=== PATIENT | female | born 1965 | race Caucasian/White ===

== ENCOUNTER 2019-01-30 16:36 | Observation (INO) | payer BC, OTHER ==
[2019-01-30] MEDS ORDERED: Metoprolol Tartrate 5 MG/5 ML SDV IVPUSH ONE (16:46)
[2019-01-30] MEDS ORDERED: Aspirin 81 MG Tab.Chew CHEW ONE (16:46)
[2019-01-30] MEDS ORDERED: Famotidine 20 MG/2 ML SDV IVPUSH ONE (16:46)
[2019-01-30] MEDS ORDERED: Ticagrelor 90 MG Tab PO ONE (16:46)
[2019-01-30] MEDS ORDERED: Sodium Chloride 0.9% 10 ML Syringe FLUSH PRN ×2 (16:46→20:37)
--- NOTE | 2019-01-30 16:46 | EDM.PDOC ---
ED HPI GENERAL MEDICAL PROBLEM - General Chief Complaint: Chest Pain Stated Complaint: CHEST PAIN Time Seen by Provider: 01/30/19 16:40 Source of Information: Reports: Patient, Old Records ([facility] EMR. No paper hospital chart available.), Other (Limited records from [facility]) History Limitations: Reports: No Limitations - History of Present Illness INITIAL COMMENTS - FREE TEXT/NARRATIVE: The patient drove herself to the emergency room via private automobile after brief evaluation by her regular provider, Ivelisse Funez PA-C, at [facility], secondary to sudden onset 4/10 retrosternal chest pressure associated with some dizziness, nausea, diaphoresis, and radiation to the interscapular regions bilaterally. She has not felt well for the last 5-6 days with a UTI recently diagnosed and patient currently under Bactrim DS therapy. She currently denies any gross hematuria, colic, or other UTI symptoms. The patient denies any heart flutter, orthostasis, orthopnea, paresthesias, recent decreased exercise tolerance, or any other anginal-type symptoms. No recent history of abdominal pain, heartburn, nausea, diarrhea, melena, gross hematochezia, or any food intolerance, including fatty foods, etc.. The patient also denies any recent fever, cough, wheezing, etc.. No history of recent headaches, visual changes, diplopia, change in mental status, or other change in neurological status. Onset: Today, Sudden Onset Date: 01/30/19 Onset Time: 14:00 Duration: Constant Location: Reports: Chest, Back, Radiates to (As above). Denies: Head, Face, Neck, Abdomen, Upper Extremity, Left, Upper Extremity, Right Quality: Reports: Pressure Severity: Mild Improves with: Reports: None Worsens with: Reports: None Context: Reports: Other (As above). Denies: Sick Contact, Trauma Associated Symptoms: Reports: Nausea/Vomiting (No emesis), Shortness of Breath. Denies: Confusion, Chest Pain, Cough, Diaphoresis, Fever/Chills, Headaches, Loss of Appetite, Malaise, Seizure, Syncope, Weakness Treatments INSTITUTIONAL COOK: Reports: Other (see below) (None) Chest Pain 4/10 Pain Score (Numeric/FACES): 4 - Related Data Allergies Allergy/AdvReac Type Severity Reaction Status Date / Time No Known Allergies Allergy Verified 07/13/18 22:55 Home Meds: Home Meds Levothyroxine Sodium 88 mcg PO SUTUTHSA@1030 07/13/18 [History] Levothyroxine [Synthroid] 100 mcg MOWEFR@1030 07/13/18 [History] Sulfamethoxazole/Trimethoprim [Bactrim Ds Tablet] 1 tab PO BID 01/30/19 [History ] Past Medical History HEENT History: Reports: Cataract, Impaired Vision, Other (See Below). Denies: Allergic Rhinitis, Glaucoma, Hard of Hearing, Macular Degeneration, Otitis Media , Retinal Detachment Other HEENT History: Right lower quadrant chronic vision loss beginning in 2013 with negative MRI of the brain as below. Patient does wear glasses. Cardiovascular History: Reports: None. Denies: Afib, Aneurysm, Arrhythmia, Blood Clots/VTE/DVT, CAD, Cardiomyopathy, Heart Failure, Heart Murmur, High Cholesterol, Hypertension, AR, PVD, Syncope Respiratory History: Reports: None. Denies: Asthma, Bronchitis, Recurrent, COPD , Intubation, Difficult, Intubation, Previous, PE, Pneumonia, Recurrent, Pneumothorax, Sleep Apnea Gastrointestinal History: Reports: Cholelithiasis, Other (See Below). Denies: Celiac Disease, Chronic Constipation, Chronic Diarrhea, Colon Polyp, Fecal Incontinence, Gastritis, GERD, GI Bleed, Hemorrhoids, Hepatitis, Hiatal Hernia, Irritable Bowel Syndrome, Jaundice, Pancreatitis, PUD Other Gastrointestinal History: Nonsymptomatic cholelithiasis Genitourinary History: Reports: None. Denies: Acute Renal Failure, Chronic Renal Insuffiency, Renal Calculus, STD, Urinary Incontinence, UTI, Recurrent GEMOLOGIST History: Reports: : 4 Para: 4 LMP (Approximate): Other (See Below) Other GEMOLOGIST History: Menopause in her late 40s. Full term without complications during pregnancies or deliveries Musculoskeletal History: Reports: Osteoarthritis. Denies: Amputation, Arthritis , Back Pain, Chronic, Fracture, Gout, Neck Pain, Chronic, RA, SLE Neurological History: Reports: None. Denies: Cerebral Aneurysms, Concussion, CVA, Headaches, Chronic, Head Trauma, Migraines, MS, Neuropathy, Peripheral, Parkinson's, Seizure, TIA, Vertigo Psychiatric History: Reports: None. Denies: Abuse, Victim of, ADD, ADHD, Addiction, Anxiety, Depression, Psych Hospitalization(s), PTSD, Suicide Attempt , Suicidal Ideation Endocrine/Metabolic History: Reports: Hypothyroidism, Obesity/BMI 30+. Denies: Diabetes, Gestational, Diabetes, Type I, Diabetes, Type II, Diabetes Mellitus, Type 3c, IDDM Hematologic History: Reports: None. Denies: Anemia, Blood Transfusion(s), Iron Deficiency Immunologic History: Reports: None. Denies: AIDS, HIV, SLE Oncologic (Cancer) History: Reports: None. Denies: Basal Cell Carcinoma, Breast , Cervix, Colon, Hodgkin's Lymphoma, Leukemia, Lymphoma, Malignant Melanoma, Non -Hodgkin's Lymphoma, Ovarian, Squamous Cell Carcinoma, Thyroid, Uterine Dermatologic History: Reports: None. Denies: Eczema, Psoriasis - Infectious Disease History Infectious Disease History: Reports: Chicken Pox. Denies: C-Difficile, Measles , Meningitis, Mononucleosis, MRSA, Mumps, Pertussis (Whooping Cough), Rheumatic Fever, Rubella, Scarlet Fever, Shingles, TB, VRE - Past Surgical History Head Surgeries/Procedures: Reports: None HEENT Surgical History: Reports: Oral Surgery, Other (See Below) Other HEENT Surgeries/Procedures: [place] teeth extraction 4 at age 19. GI Surgical History: Reports: None Female Surgical History: Reports: Tubal Ligation, Other (See Below) Other Female Surgeries/Procedures: Bilateral tubal ligation in 1996. - Past Imaging History Past Imaging History: Reports: CAT Scan (CT of the abdomen and pelvis on 09/13/16. ), Mammogram (Mammogram in 2017.), MRI (MRI of the brain on 11/01/13.) Social & Family History - Family History HEENT: Reports: Retinal Detachment, Other (See Below). Denies: Glaucoma, Macular Degeneration Other HEENT Family History: Mother with history of retinal detachment. Cardiac: Reports: None. Denies: Afib, Aneurysm, Arrhythmia, Blood Clots/VTE/DVT , CAD, Heart Failure, Heart Murmur, High Cholesterol, Hypertension, AR, Pacemaker, PVD/COD, Syncope Respiratory: Reports: None. Denies: Asthma, COPD, PE, Pneumothorax, Sleep Apnea GI: Reports: None. Denies: Celiac Disease, Cholelithiasis, Chronic Constipation , Colon Polyps, Diverticulitis, GERD, GI bleed, Hepatitis, Inflammatory Bowel Disease, Irritable Bowel Syndrome, PUD : Reports: None. Denies: Renal Calculus, Renal Disease/Insufficiency OBGYN: Reports: None. Denies: Endometriosis, Recurrent Spontaneous Musculoskeletal: Reports: None. Denies: Arthritis, Gout, Osteoarthritis, RA, SLE Neurological: Reports: None. Denies: Alzheimers Disease, Cerebral Aneurysms, CVA, Dementia, Migraines, MS, Neuropathy, Peripheral, Parkinson's, Seizure, TIA , Vertigo Psychiatric: Reports: None. Denies: Abuse, Victim of, ADD, ADHD, Anxiety, Depression, Hallucinations, PTSD, Suicide Attempt Endocrine/Metabolic: Reports: None. Denies: Diabetes, Gestational, Diabetes, Type I, Diabetes, type II, Diabetes Mellitus, Type 3c, Hypothyroidism, IDDM Hematologic: Reports: None. Denies: SLE Immunologic: Reports: None. Denies: AIDS, HIV, SLE Dermatologic: Reports: None. Denies: Eczema, Psoriasis Oncologic: Reports: None. Denies: Breast, Cervix, Colon, Hodgkin's Lymphoma, Leukemia, Lymphoma, Non-Hodgkin's Lymphoma, Ovarian, Uterine - Tobacco Use Smoking Status *Q: Former Smoker Tobacco Use Within Last Twelve Months: No Years of Tobacco use: 0 Packs/Tins Daily Comment: Only a couple of cigarettes 2 times per year with no use since 2018. Used Tobacco, but Quit: Yes Smoking Cessation Information Provided To Patient: No Second Hand Smoke Exposure: No Second Hand Smoke Education Provided: No - Caffeine Use Caffeine Use: Reports: Tea (2 glasses per month). Denies: Coffee, Energy Drinks , Soda - Alcohol Use Alcohol Use History: Yes Days Per Week of Alcohol Use: 0 Number of Drinks Per Day: 1 Number of Drinks Per Day Comment: Usually mixed drinks once per month. No previous DWIs, problems with alcohol abuse, etc. Total Drinks Per Week: 0 Alcohol Use in Last Twelve Months: Yes Alcohol Use Frequency: Monthly - Recreational Drug Use Recreational Drug Use: No Drug Use in Last 12 Months: No Recreational Drug Type: Denies: Amphetamines (Speed), Heroin, Inhalants (Glues, Solvents, Aerosols), LSD (Acid), Marijuana/Hashish, Methamphetamine, Morphine, Oxycodone - Sexual History Sexual History: Reports: Single Partner - Living Situation & Occupation Living situation: Reports: , (3 children from her second which did end in divorce initially with patient subsequently remarrying this individual. Note the patient to divorce her first with one child from that marriage.), with Family () Occupation: Employed ([employer]) ED ROS GENERAL - Review of Systems Review Of Systems: ROS reveals no pertinent complaints other than HPI. ED EXAM, GENERAL - Physical Exam Exam: See Below Exam Limited By: No Limitations General Appearance: Alert, WD/WN, No Apparent Distress Eye Exam: Bilateral Eye: EOMI, Normal Inspection (No nystagmus. Patient wearing glasses.), PERRL Nose: Normal Inspection, Normal Mucosa, No Blood Throat/Mouth: Normal Inspection, Normal Lips, Normal Teeth, Normal Gums, Normal Oropharynx, Normal Voice, No Airway Compromise. No: Dysphagia, Perioral Cyanosis Head: Atraumatic, Normocephalic. No: Facial Swelling, Facial Tenderness, Sinus Tenderness Neck: Normal Inspection, Supple, Non-Tender, Full Range of Motion. No: Carotid Bruit, Lymphadenopathy (L), Lymphadenopathy (R), Thyromegaly Respiratory/Chest: No Respiratory Distress, Lungs Clear, Normal Breath Sounds, No Accessory Muscle Use, Chest Non-Tender. No: Pleural Rub, Retractions Cardiovascular: Normal Peripheral Pulses, Regular Rate, Rhythm, No Edema, No Gallop, No JVD, No Murmur, No Rub. No: Gallop/S3, Friction Rub Peripheral Pulses: 2+: Femoral (L), Femoral (R), Dorsalis Pedis (L), Dorsalis Pedis (R) GI/Abdominal: Normal Bowel Sounds, Soft, Non-Tender, No Organomegaly, No Distention, No Abnormal Bruit, No Mass, Other (Obese). No: Guarding (Female) Exam: Deferred Rectal (Female) Exam: Deferred Back Exam: Normal Inspection, Full Range of Motion. No: CVA Tenderness (L), CVA Tenderness (R), Muscle Spasm Extremities: Normal Inspection, Normal Range of Motion, Non-Tender, No Pedal Edema, Normal Capillary Refill. No: Nicolle's Sign Neurological: Alert, Oriented, CN II-XII Intact, Normal Cognition, Normal Gait, Normal Reflexes (Negative Babinski's), No Motor/Sensory Deficits Psychiatric: Normal Affect, Normal Mood Skin Exam: Warm, Dry, Intact, Normal Color, No Rash. No: Diaphoretic, Ecchymosis, Petechiae, Wound/Incision Lymphatic: No Adenopathy EKG INTERPRETATION EKG Date: 01/30/19 Time: 16:49 Rhythm: NSR Rate (Beats/Min): 78 [place]: Normal (Neutral cardiac axis) P-Wave: Enlarged (Mild diffuse biphasic P waves) QRS: Normal (0.08 seconds) ST-T: Other (T-wave inversion in leads V1 and V2) QT: Normal [place]/PQ Interval: 0.19 seconds Comparison: No Change (EKG at [facility] earlier today) EKG Interpretation Comments: 1. Possible anterior wall ischemia 2. Left atrial enlargement Course - Vital Signs Last Recorded V/S: Last Vital Signs Temp 36.8 C 01/30/19 17:18 Pulse 74 01/30/19 19:04 Resp 16 01/30/19 19:04 BP 123/81 01/30/19 19:04 Pulse Ox 97 01/30/19 19:04 - Orders/Labs/Meds Orders: Active Orders 24 hr Category Date Time Status Cardiac Monitoring [RC] . DIRECTED Care 01/30/19 16:46 Active EKG Documentation Completion [RC] ASDIRECTED Care 01/30/19 16:46 Active Oxygen Therapy, ED [RC] PRN Care 01/30/19 16:46 Active Peripheral IV Care [RC] . DIRECTED Care 01/30/19 16:46 Active Pulse Oximetry [RC] CONTINUOUS Care 01/30/19 16:46 Active Up With Assistance [RC] PFP Care 01/30/19 16:46 Active Vital Signs [RC] PFP Care 01/30/19 16:46 Active Nothing per Oral Now Diet [DIET] Diet 01/30/19 Breakfast Active Chest 1V Frontal [CR] Stat Exams 01/30/19 16:46 Taken Sodium Chloride 0.9% [Saline Flush] Med 01/30/19 16:46 Active 10 ml FLUSH ASDIRECTED PRN Obtain Past Medical Record [OM.PC] Urgent Oth 01/30/19 16:46 Active Peripheral IV Insertion Adult [OM.PC] Stat Oth 01/30/19 16:46 Ordered Resuscitation Status Stat Resus Stat 01/30/19 16:46 Ordered Medication Orders Sodium Chloride (Saline Flush) 10 ml FLUSH ASDIRECTED PRN PRN Reason: Keep Vein Open Last Admin: 01/30/19 17:42 Dose: 10 ml Labs: Laboratory Tests 01/30/19 01/30/19 01/30/19 Range/Units 17:18 17:18 17:18 WBC 6.7 (4.0-10.2) K/uL RBC 5.32 H (3.77-5.09) M/uL Hgb 15.2 (11.7-15.5) g/dL Hct 44.5 (34.0-46.0) % MCV 83.6 L (84.0-98.0) fL MCH 28.6 (28.2-33.3) pg MCHC 34.2 (31.7-36.0) g/dL RDW 14.1 (11.2-14.1) % Plt Count 197 (150-350) K/uL Neut % (Auto) 61.0 (45.0-80.0) % Lymph % (Auto) 28.7 (10.0-50.0) % [place] % (Auto) 6.4 (2.0-14.0) % Eos % (Auto) 3.0 (0.0-5.0) % Baso % (Auto) 0.9 (0.0-2.0) % Neut # (Auto) 4.11 (1.40-7.00) K/uL Lymph # (Auto) 1.93 (0.50-3.50) K/uL [place] # (Auto) 0.43 (0.00-1.00) K/uL Eos # (Auto) 0.20 (0.00-0.50) K/uL Baso # (Auto) 0.06 (0.00-0.20) K/uL PT 10.0 (9.5-12.0) SEC INR 0.9 APTT 30.2 (21.0-31.3) SEC D-Dimer, Quantitative < 100 (0-400) ng/mL Sodium (136-145) mmol/L Potassium (3.5-5.1) mmol/L Chloride (98-107) mmol/L Carbon Dioxide (21.0-32.0) mmol/L BUN (7-18) mg/dL Creatinine (0.51-1.17) mg/dL Est Cr Clr Drug Dosing Estimated GFR (MDRD) mL/min Glucose (74-106) mg/dL Lactic Acid (0.4-2.0) mmol/L Uric Acid (2.6-7.2) mg/dL Calcium (8.5-10.1) mg/dL Magnesium (1.8-2.4) mg/dL Total Bilirubin (0.2-1.0) mg/dL AST (15-37) U/L ALT (12-78) U/L Alkaline Phosphatase (46-116) IU/L Creatine Kinase (26-308) U/L Creatine Kinase Index (0.0-2.5) % CK-MB (CK-2) (0.00-3.60) ng/mL Troponin I (0.000-0.056) ng/mL NT-Pro-B Natriuret Pep (0-125) pg/mL Total Protein (6.4-8.2) g/dL Albumin (3.4-5.0) g/dL TSH, Ultra Sensitive (0.358-3.740) mIU/mL 01/30/19 01/30/19 Range/Units 17:18 17:18 WBC (4.0-10.2) K/uL RBC (3.77-5.09) M/uL Hgb (11.7-15.5) g/dL Hct (34.0-46.0) % MCV (84.0-98.0) fL MCH (28.2-33.3) pg MCHC (31.7-36.0) g/dL RDW (11.2-14.1) % Plt Count (150-350) K/uL Neut % (Auto) (45.0-80.0) % Lymph % (Auto) (10.0-50.0) % [place] % (Auto) (2.0-14.0) % Eos % (Auto) (0.0-5.0) % Baso % (Auto) (0.0-2.0) % Neut # (Auto) (1.40-7.00) K/uL Lymph # (Auto) (0.50-3.50) K/uL [place] # (Auto) (0.00-1.00) K/uL Eos # (Auto) (0.00-0.50) K/uL Baso # (Auto) (0.00-0.20) K/uL PT (9.5-12.0) SEC INR APTT (21.0-31.3) SEC D-Dimer, Quantitative (0-400) ng/mL Sodium 141 (136-145) mmol/L Potassium 4.2 (3.5-5.1) mmol/L Chloride 104 (98-107) mmol/L Carbon Dioxide 28.5 (21.0-32.0) mmol/L BUN 14 (7-18) mg/dL Creatinine 0.85 (0.51-1.17) mg/dL Est Cr Clr Drug Dosing TNP Estimated GFR (MDRD) > 60 mL/min Glucose 99 (74-106) mg/dL Lactic Acid 0.5 (0.4-2.0) mmol/L Uric Acid 4.8 (2.6-7.2) mg/dL Calcium 9.2 (8.5-10.1) mg/dL Magnesium 1.9 (1.8-2.4) mg/dL Total Bilirubin 0.5 (0.2-1.0) mg/dL AST 32 (15-37) U/L ALT 51 (12-78) U/L Alkaline Phosphatase 101 (46-116) IU/L Creatine Kinase 76 (26-308) U/L Creatine Kinase Index 1.8 (0.0-2.5) % CK-MB (CK-2) 1.40 (0.00-3.60) ng/mL Troponin I 0.000 (0.000-0.056) ng/mL NT-Pro-B Natriuret Pep 16 (0-125) pg/mL Total Protein 7.7 (6.4-8.2) g/dL Albumin 4.0 (3.4-5.0) g/dL TSH, Ultra Sensitive 0.914 (0.358-3.740) mIU/mL Meds: Medications Generic Name Dose Route Start Last Admin Trade Name Freq PRN Reason Stop Dose Admin Sodium Chloride 10 ml 01/30/19 16:46 01/30/19 17:42 Saline Flush FLUSH 10 ml ASDIRECTED PRN Administration Keep Vein Open Discontinued Medications Generic Name Dose Route Start Last Admin Trade Name Freq PRN Reason Stop Dose Admin Aspirin 324 mg 01/30/19 16:46 01/30/19 17:42 Aspirin CHEW 01/30/19 16:47 324 mg ONETIME ONE Administration Famotidine 40 mg 01/30/19 16:46 01/30/19 17:42 Pepcid IVPUSH 01/30/19 16:47 40 mg ONETIME ONE Administration Metoprolol Tartrate 2.5 mg 01/30/19 16:46 01/30/19 17:41 Lopressor IVPUSH 01/30/19 16:47 2.5 mg ONETIME ONE Administration Ticagrelor 180 mg 01/30/19 16:46 01/30/19 17:42 Brilinta PO 01/30/19 16:47 180 mg ONETIME ONE Administration - Radiology Interpretation Free Text/Narrative:: security monitor showed normal sinus rhythm with heart rate in the 70s to 80s with no ectopy or arrhythmia. Chest x-ray, portable, shows no evidence of cardiomegaly, CHF, pulmonary infiltrates, pneumothorax, etc. Departure - Departure Time of Disposition: 19:15 Disposition: Refer to Observation Condition: Good Clinical Impression: Chest pain, Hypothyroidism (acquired), Osteoarthritis, Cholelithiasis, Obesity (BMI 30-39.9), UTI (urinary tract infection) Referrals: Janki Dominguez, PRINTING PRESS OPERATOR APPRENTICE [Primary Care Provider] - Forms: ED Department Discharge Care Plan Goals: See plan - Problem List & Annotations (1) Chest pain SNOMED Code(s): 84595898 Code(s): R07.9 - CHEST PAIN, UNSPECIFIED Status: Acute Priority: High Current Visit: Yes Onset Date: 01/30/19 Annotation/Comment:: Chest pain protocol was initiated immediately upon patient's arrival to this facility with resolved symptoms at time of admission. Initiate standard rule out AR orders with cardiology consultation depending on her clinical course. Patient should be scheduled for a Cardiolite stress test on an outpatient basis. Attempt to schedule this procedure later this week with me, if a space is available. Recommend 50% maximum exercise restriction until her cardiac status can be determined. [employer] work excuse given for today's hospitalization with another excuse needed for tomorrow. Qualifiers: Chest pain type: unspecified Qualified Code(s): R07.9 - Chest pain, unspecified (2) Hypothyroidism (acquired) SNOMED Code(s): 232242750 Code(s): E03.9 - HYPOTHYROIDISM, UNSPECIFIED Status: Chronic Priority: Medium Current Visit: Yes Annotation/Comment:: Currently under therapy with normal TSH today. (3) Cholelithiasis SNOMED Code(s): 699287369 Code(s): K80.20 - CALCULUS OF GALLBLADDER W/O CHOLECYSTITIS W/O OBSTRUCTION Status: Chronic Priority: Medium Current Visit: Yes Annotation/Comment: : Nonsymptomatic to this point. Continue to observe closely. Qualifiers: Cholelithiasis location: gallbladder Cholecystitis presence: without cholecystitis Biliary obstruction: without biliary obstruction Qualified Code(s): K80.20 - Calculus of gallbladder without cholecystitis without obstruction (4) Obesity (BMI 30-39.9) SNOMED Code(s): 635997052, 230534340 Code(s): E66.9 - OBESITY, UNSPECIFIED Status: Chronic Priority: Medium Current Visit: Yes Annotation/Comment:: Lipid panel and glycosylated hemoglobin in the a.m. Weight loss in moderation advisable. (5) Osteoarthritis SNOMED Code(s): 930805407 Code(s): M19.90 - UNSPECIFIED OSTEOARTHRITIS, UNSPECIFIED SITE Status: Chronic Priority: Medium Current Visit: Yes Annotation/Comment:: Stable by history Qualifiers: Osteoarthritis location: multiple joints Osteoarthritis type: primary Qualified Code(s): M15.0 - Primary generalized (osteo)arthritis (6) UTI (urinary tract infection) SNOMED Code(s): 73461346 Code(s): N39.0 - URINARY TRACT INFECTION, SITE NOT SPECIFIED Status: Acute Priority: Medium Current Visit: Yes Onset Date: ~01/25/19 Annotation/ Comment:: Currently under Bactrim DS therapy. Additional UA was collected today with culture and sensitivity to be ordered on admission. Qualifiers: Urinary tract infection type: acute cystitis Hematuria presence: without hematuria Qualified Code(s): N30.00 - Acute cystitis without hematuria - Problem List Review Problem List Initiated/Reviewed/Updated: Yes - My Orders Last 24 Hours: My Active Orders 01/30/19 16:46 Cardiac Monitoring [RC] . DIRECTED EKG Documentation Completion [RC] ASDIRECTED Oxygen Therapy, ED [RC] PRN Peripheral IV Care [RC] . DIRECTED Pulse Oximetry [RC] CONTINUOUS Up With Assistance [RC] PFP Vital Signs [RC] PFP Chest 1V Frontal [CR] Stat Sodium Chloride 0.9% [Saline Flush] 10 ml FLUSH ASDIRECTED PRN Obtain Past Medical Record [OM.PC] Urgent Peripheral IV Insertion Adult [OM.PC] Stat Resuscitation Status Stat 01/30/19 Breakfast Nothing per Oral Now Diet [DIET] - Assessment/Plan Admission H&P: Please use this note as an admission H&P Last 24 Hours: My Active Orders 01/30/19 16:46 Cardiac Monitoring [RC] . DIRECTED EKG Documentation Completion [RC] ASDIRECTED Oxygen Therapy, ED [RC] PRN Peripheral IV Care [RC] . DIRECTED Pulse Oximetry [RC] CONTINUOUS Up With Assistance [RC] PFP Vital Signs [RC] PFP Chest 1V Frontal [CR] Stat Sodium Chloride 0.9% [Saline Flush] 10 ml FLUSH ASDIRECTED PRN Obtain Past Medical Record [OM.PC] Urgent Peripheral IV Insertion Adult [OM.PC] Stat Resuscitation Status Stat 01/30/19 Breakfast Nothing per Oral Now Diet [DIET] Assessment:: As above Plan: As above. Extensive precautions were given to the patient, who is in agreement with the treatment plan. The patient's condition is stable enough for observation status and general supervision. Miguel Ángel olea physician assumes care in the a.m.
[2019-01-30 17:46] LABS: CHLORIDE,CL 104 mmol/L (98-107); SODIUM,NA 141 mmol/L (136-145)
[2019-01-30] MEDS ORDERED: Temazepam 15 MG Cap PO PRN (20:37)
[2019-01-30] MEDS ORDERED: Acetaminophen 325 MG Tab PO PRN (20:37)
[2019-01-31 07:49] LABS: HEMOGLOBIN A1C 5.7 % (4.3-5.7)
[2019-01-31] MEDS ORDERED: Sulfamethoxazole/Trimethoprim 800-160 MG Tab PO SCH (08:00)
[2019-01-31 08:19] LABS: CHLORIDE,CL 106 mmol/L (98-107); SODIUM,NA 143 mmol/L (136-145)
[2019-01-31] MEDS ORDERED: Levothyroxine 100 MCG Tab PO SCH (10:30)
--- NOTE | 2019-01-31 12:19 | PCM.DCSUM1 ---
Discharge Summary - Hospital Course Brief History: Patient admitted for chest pain and rule out PA protocol. - Discharge Data Discharge Date: 01/31/19 Discharge Disposition: Home, Self-Care 01 Condition: Good - Discharge Diagnosis/Problem(s) (1) Chest pain SNOMED Code(s): 20758725 ICD Code: R07.9 - CHEST PAIN, UNSPECIFIED Status: Acute Priority: High Current Visit: Yes Onset Date: 01/30/19 Problem Details: Pain-free since admission. Troponin measurements negative. EKG unchanged. Telemetry unremarkable. Cardiolite stress test scheduled for tomorrow with patient to follow up with primary provider. Light duty at [facility] [employer] [facility] for the week. Differential includes GI and musculoskeletal etiology. Tender with palpation left pectoral muscle this morning which partially reproduced patient's chest pain discomfort from yesterday. Qualifiers: Chest pain type: unspecified Qualified Code(s): R07.9 - Chest pain, unspecified (2) UTI (urinary tract infection) SNOMED Code(s): 58377469 ICD Code: N39.0 - URINARY TRACT INFECTION, SITE NOT SPECIFIED Status: Acute Priority: Medium Current Visit: Yes Onset Date: ~01/25/19 Problem Details: Currently under Bactrim DS therapy. Additional UA was collected today with culture and sensitivity to be ordered on admission. Antibio Qualifiers: Urinary tract infection type: acute cystitis Hematuria presence: without hematuria Qualified Code(s): N30.00 - Acute cystitis without hematuria (3) Cholelithiasis SNOMED Code(s): 286569429 ICD Code: K80.20 - CALCULUS OF GALLBLADDER W/O CHOLECYSTITIS W/O OBSTRUCTION Status: Chronic Priority: Medium Current Visit: Yes Problem Details: Nonsymptomatic to this point. Continue to observe closely. Qualifiers: Cholelithiasis location: gallbladder Cholecystitis presence: without cholecystitis Biliary obstruction: without biliary obstruction Qualified Code(s): K80.20 - Calculus of gallbladder without cholecystitis without obstruction (4) Hypothyroidism (acquired) SNOMED Code(s): 453371499 ICD Code: E03.9 - HYPOTHYROIDISM, UNSPECIFIED Status: Chronic Priority: Medium Current Visit: Yes Problem Details: Currently under therapy with normal TSH today. (5) Obesity (BMI 30-39.9) SNOMED Code(s): 777753989, 973564582 ICD Code: E66.9 - OBESITY, UNSPECIFIED Status: Chronic Priority: Medium Current Visit: Yes Problem Details: Normal cholesterol and A1c. LDL 121, HDL 37. Weight loss in moderation advisable. (6) Osteoarthritis SNOMED Code(s): 803234122 ICD Code: M19.90 - UNSPECIFIED OSTEOARTHRITIS, UNSPECIFIED SITE Status: Chronic Priority: Medium Current Visit: Yes Problem Details: Stable by history Qualifiers: Osteoarthritis location: multiple joints Osteoarthritis type: primary Qualified Code(s): M15.0 - Primary generalized (osteo)arthritis - Patient Summary/Data Hospital Course: Unremarkable hospital course. Negative cardiac labs. Vital signs stable. Remained symptom-free throughout stay. Precautions reviewed at time of discharge. Differential includes GI/musculoskeletal/cardiac etiologies for original pain complaint. Stress test scheduled for tomorrow. Given [employer] work excuse for yesterday, today, and tomorrow. Light duty thereafter until February 07 unless otherwise cleared by primary provider. - Patient Instructions Diet: Heart Healthy Diet Activity: No Lifting Over 20 Pounds, No Strenuous Activities, Rest and Relax Today Driving: May Drive Today Showering/Bathing: May Shower - Discharge Plan *PRESCRIPTION DRUG MONITORING PROGRAM REVIEWED*: Not Applicable *COPY OF PRESCRIPTION DRUG MONITORING REPORT IN PATIENT EDITH: Not Applicable Home Medications: Home Meds Levothyroxine Sodium 88 mcg PO SUTUTHSA@1030 07/13/18 [History] Levothyroxine [Synthroid] 100 mcg MOWEFR@1030 07/13/18 [History] Sulfamethoxazole/Trimethoprim [Bactrim Ds Tablet] 1 tab PO BID 01/30/19 [History ] Forms: ED Department Discharge Referrals: Janki Dominguez CUSTOMER AGENT [Primary Care Provider] - - Discharge Summary/Plan Comment DC Time >30 min.: No - General Info Date of Service: 01/31/19 Admission Dx/Problem (Free Text: Chest pain Subjective Update: Currently pain free. Has felt like she has had mild URI/stuffy nose since 6 days ago. Denies worsening symptoms. Functional Status: Reports: Pain Controlled, Tolerating Diet, Ambulating, Urinating. Denies: New Symptoms - Review of Systems General: Reports: No Symptoms HEENT: Reports: Rhinitis. Denies: Ear Pain, Headaches, Sinus Congestion, Sore Throat Pulmonary: Reports: Cough (mild). Denies: Shortness of Breath, Pleuritic Chest Pain, Sputum, Hemoptysis, Wheezing Cardiovascular: Denies: Chest Pain, Dyspnea on Exertion, Edema, Lightheadedness Gastrointestinal: Reports: No Symptoms. Denies: Abdominal Pain, Diarrhea, Nausea, Vomiting Genitourinary: Reports: No Symptoms Musculoskeletal: Reports: No Symptoms Skin: Reports: No Symptoms Neurological: Reports: No Symptoms Psychiatric: Reports: No Symptoms - Patient Data Vitals - Most Recent: Last Vital Signs Temp 36.6 C 01/31/19 11:40 Pulse 73 01/31/19 11:40 Resp 16 01/31/19 11:40 BP 126/80 01/31/19 11:40 Pulse Ox 96 01/31/19 11:40 Weight - Most Recent: 84.686 kg I&O - Last 24 hours: Intake & Output 01/30/19 01/31/19 01/31/19 22:59 06:59 14:59 Intake Total 100 600 Output Total 250 200 300 Balance -150 -200 300 Lab Results - Last 24 hrs: Laboratory Results - last 24 hr 01/30/19 01/30/19 01/30/19 Range/Units 17:18 17:18 17:18 WBC 6.7 (4.0-10.2) K/uL RBC 5.32 H (3.77-5.09) M/uL Hgb 15.2 (11.7-15.5) g/dL Hct 44.5 (34.0-46.0) % MCV 83.6 L (84.0-98.0) fL MCH 28.6 (28.2-33.3) pg MCHC 34.2 (31.7-36.0) g/dL RDW 14.1 (11.2-14.1) % Plt Count 197 (150-350) K/uL Neut % (Auto) 61.0 (45.0-80.0) % Lymph % (Auto) 28.7 (10.0-50.0) % [place] % (Auto) 6.4 (2.0-14.0) % Eos % (Auto) 3.0 (0.0-5.0) % Baso % (Auto) 0.9 (0.0-2.0) % Neut # (Auto) 4.11 (1.40-7.00) K/uL Lymph # (Auto) 1.93 (0.50-3.50) K/uL [place] # (Auto) 0.43 (0.00-1.00) K/uL Eos # (Auto) 0.20 (0.00-0.50) K/uL Baso # (Auto) 0.06 (0.00-0.20) K/uL PT 10.0 (9.5-12.0) SEC INR 0.9 APTT 30.2 (21.0-31.3) SEC D-Dimer, Quantitative < 100 (0-400) ng/mL Sodium (136-145) mmol/L Potassium (3.5-5.1) mmol/L Chloride (98-107) mmol/L Carbon Dioxide (21.0-32.0) mmol/L BUN (7-18) mg/dL Creatinine (0.51-1.17) mg/dL Est Cr Clr Drug Dosing Estimated GFR (MDRD) mL/min Glucose (74-106) mg/dL Hemoglobin A1c (4.3-5.7) % Lactic Acid (0.4-2.0) mmol/L Uric Acid (2.6-7.2) mg/dL Calcium (8.5-10.1) mg/dL Magnesium (1.8-2.4) mg/dL Total Bilirubin (0.2-1.0) mg/dL AST (15-37) U/L ALT (12-78) U/L Alkaline Phosphatase (46-116) IU/L Creatine Kinase (26-308) U/L Creatine Kinase Index (0.0-2.5) % CK-MB (CK-2) (0.00-3.60) ng/mL Troponin I (0.000-0.056) ng/mL NT-Pro-B Natriuret Pep (0-125) pg/mL Total Protein (6.4-8.2) g/dL Albumin (3.4-5.0) g/dL Triglycerides (30-150) mg/dL Cholesterol (100-200) mg/dL LDL Cholesterol, Calc (0-100) mg/dL HDL Cholesterol (40-60) mg/dL TSH, Ultra Sensitive (0.358-3.740) mIU/mL 05/01/30/19 01/30/19 Range/Units 17:18 17:18 21:40 WBC (4.0-10.2) K/uL RBC (3.77-5.09) M/uL Hgb (11.7-15.5) g/dL Hct (34.0-46.0) % MCV (84.0-98.0) fL MCH (28.2-33.3) pg MCHC (31.7-36.0) g/dL RDW (11.2-14.1) % Plt Count (150-350) K/uL Neut % (Auto) (45.0-80.0) % Lymph % (Auto) (10.0-50.0) % [place] % (Auto) (2.0-14.0) % Eos % (Auto) (0.0-5.0) % Baso % (Auto) (0.0-2.0) % Neut # (Auto) (1.40-7.00) K/uL Lymph # (Auto) (0.50-3.50) K/uL [place] # (Auto) (0.00-1.00) K/uL Eos # (Auto) (0.00-0.50) K/uL Baso # (Auto) (0.00-0.20) K/uL PT (9.5-12.0) SEC INR APTT (21.0-31.3) SEC D-Dimer, Quantitative (0-400) ng/mL Sodium 141 (136-145) mmol/L Potassium 4.2 (3.5-5.1) mmol/L Chloride 104 (98-107) mmol/L Carbon Dioxide 28.5 (21.0-32.0) mmol/L BUN 14 (7-18) mg/dL Creatinine 0.85 (0.51-1.17) mg/dL Est Cr Clr Drug Dosing TNP Estimated GFR (MDRD) > 60 mL/min Glucose 99 (74-106) mg/dL Hemoglobin A1c (4.3-5.7) % Lactic Acid 0.5 (0.4-2.0) mmol/L Uric Acid 4.8 (2.6-7.2) mg/dL Calcium 9.2 (8.5-10.1) mg/dL Magnesium 1.9 (1.8-2.4) mg/dL Total Bilirubin 0.5 (0.2-1.0) mg/dL AST 32 (15-37) U/L ALT 51 (12-78) U/L Alkaline Phosphatase 101 (46-116) IU/L Creatine Kinase 76 70 (26-308) U/L Creatine Kinase Index 1.8 1.7 (0.0-2.5) % CK-MB (CK-2) 1.40 1.20 (0.00-3.60) ng/mL Troponin I 0.000 0.000 (0.000-0.056) ng/mL NT-Pro-B Natriuret Pep 16 (0-125) pg/mL Total Protein 7.7 (6.4-8.2) g/dL Albumin 4.0 (3.4-5.0) g/dL Triglycerides (30-150) mg/dL Cholesterol (100-200) mg/dL LDL Cholesterol, Calc (0-100) mg/dL HDL Cholesterol (40-60) mg/dL TSH, Ultra Sensitive 0.914 (0.358-3.740) mIU/mL 01/31/19 01/31/19 01/31/19 Range/Units 07:21 07:21 07:21 WBC 6.1 (4.0-10.2) K/uL RBC 5.06 (3.77-5.09) M/uL Hgb 14.5 (11.7-15.5) g/dL Hct 42.5 (34.0-46.0) % MCV 84.0 (84.0-98.0) fL MCH 28.7 (28.2-33.3) pg MCHC 34.1 (31.7-36.0) g/dL RDW 14.1 (11.2-14.1) % Plt Count 183 (150-350) K/uL Neut % (Auto) 55.7 (45.0-80.0) % Lymph % (Auto) 33.3 (10.0-50.0) % [place] % (Auto) 6.9 (2.0-14.0) % Eos % (Auto) 3.3 (0.0-5.0) % Baso % (Auto) 0.8 (0.0-2.0) % Neut # (Auto) 3.40 (1.40-7.00) K/uL Lymph # (Auto) 2.03 (0.50-3.50) K/uL [place] # (Auto) 0.42 (0.00-1.00) K/uL Eos # (Auto) 0.20 (0.00-0.50) K/uL Baso # (Auto) 0.05 (0.00-0.20) K/uL PT (9.5-12.0) SEC INR APTT (21.0-31.3) SEC D-Dimer, Quantitative (0-400) ng/mL Sodium 143 (136-145) mmol/L Potassium 4.1 (3.5-5.1) mmol/L Chloride 106 (98-107) mmol/L Carbon Dioxide 28.1 (21.0-32.0) mmol/L BUN 14 (7-18) mg/dL Creatinine 0.80 (0.51-1.17) mg/dL Est Cr Clr Drug Dosing 64.32 Estimated GFR (MDRD) > 60 mL/min Glucose 118 H (74-106) mg/dL Hemoglobin A1c 5.7 (4.3-5.7) % Lactic Acid (0.4-2.0) mmol/L Uric Acid (2.6-7.2) mg/dL Calcium 9.2 (8.5-10.1) mg/dL Magnesium (1.8-2.4) mg/dL Total Bilirubin 0.5 (0.2-1.0) mg/dL AST 33 (15-37) U/L ALT 47 (12-78) U/L Alkaline Phosphatase 89 (46-116) IU/L Creatine Kinase 59 (26-308) U/L Creatine Kinase Index 1.5 (0.0-2.5) % CK-MB (CK-2) 0.90 (0.00-3.60) ng/mL Troponin I 0.000 (0.000-0.056) ng/mL NT-Pro-B Natriuret Pep (0-125) pg/mL Total Protein 6.8 (6.4-8.2) g/dL Albumin 3.6 (3.4-5.0) g/dL Triglycerides 202 H (30-150) mg/dL Cholesterol 198 (100-200) mg/dL LDL Cholesterol, Calc 121 H (0-100) mg/dL HDL Cholesterol 37 L (40-60) mg/dL TSH, Ultra Sensitive (0.358-3.740) mIU/mL Med Orders - Current: Current Medications Acetaminophen (Tylenol) 650 mg PO Q4H PRN PRN Reason: Pain Levothyroxine Sodium (Synthroid) 88 mcg PO SUTUTHSA@1030 [facility] Levothyroxine Sodium (Synthroid) 100 mcg PO MOWEFR@1030 [facility] Last Admin: 01/31/19 09:58 Dose: 100 mcg Sodium Chloride (Saline Flush) 10 ml FLUSH ASDIRECTED PRN PRN Reason: Keep Vein Open Last Admin: 01/30/19 17:42 Dose: 10 ml Sodium Chloride (Saline Flush) 10 ml FLUSH Q12HR PRN PRN Reason: Keep Vein Open Temazepam (Restoril) 15 mg PO BEDTIME PRN PRN Reason: Insomnia Trimethoprim/Sulfamethoxazole (Septra Ds) 1 tab PO BID [facility] Last Admin: 01/31/19 07:37 Dose: 1 tab Discontinued Medications Aspirin (Aspirin) 324 mg CHEW ONETIME ONE Stop: 01/30/19 16:47 Last Admin: 01/30/19 17:42 Dose: 324 mg Famotidine (Pepcid) 40 mg IVPUSH ONETIME ONE Stop: 01/30/19 16:47 Last Admin: 01/30/19 17:42 Dose: 40 mg Metoprolol Tartrate (Lopressor) 2.5 mg IVPUSH ONETIME ONE Stop: 01/30/19 16:47 Last Admin: 01/30/19 17:41 Dose: 2.5 mg Ticagrelor (Brilinta) 180 mg PO ONETIME ONE Stop: 01/30/19 16:47 Last Admin: 01/30/19 17:42 Dose: 180 mg - Exam General: Reports: Alert, Oriented, Cooperative, No Acute Distress HEENT: Reports: Pupils Equal, Pupils Reactive, EOMI, Mucous Membr. Moist/[place] Neck: Reports: Supple Lungs: Reports: Clear to Auscultation, Normal Respiratory Effort Cardiovascular: Reports: Regular Rate, Regular Rhythm, Other (Palpation over left pectoral area elicits some tenderness that reproduces some of yesterday's pain complaint) GI/Abdominal Exam: Normal Bowel Sounds, Soft, Non-Tender, No Distention (Female) Exam: Deferred Rectal (Female) Exam: Deferred Back Exam: Denies: CVA Tenderness (L), CVA Tenderness (R) Extremities: Normal Capillary Refill Skin: Reports: Warm, Dry, Intact Wound/Incisions: Reports: Healing Well Neurological: Reports: No New Focal Deficit Psy/Mental Status: Reports: Alert, Normal Affect, Normal Mood EKG INTERPRETATION EKG Date: 01/31/19 Time: 08:36 Rhythm: NSR Rate (Beats/Min): 73 [place]: Normal P-Wave: Present QRS: Normal ST-T: Normal QT: Normal Comparison: No Change
[2019-02-01] MEDS ORDERED: Levothyroxine 88 MCG Tab PO SCH (10:30)
== END 2019-01-31 13:30 | disposition home or self-care (01) ==
LOC: LL.ED 16:36 → LL.MS 19:04 → UNDOADMOB 19:04
PROVIDERS: ADMIT Family Medicine; ATTEND Emergency Medicine
DX: R07.2 Precordial pain (principal); N30.00 Acute cystitis without hematuria; K80.20 Calculus of gallbladder without cholecystitis without obstruction; E03.9 Hypothyroidism, unspecified; M15.0 Primary generalized (osteo)arthritis; E66.9 Obesity, unspecified; Z68.34 Body mass index [BMI] 34.0-34.9, adult; Z87.891 Personal history of nicotine dependence; Z79.899 Other long term (current) drug therapy
CPT/HCPCS: 36415; 71045; 80053; 80061; 81001; 82550; 82553; 83036; 83605; 83735; 83880; 84443; 84484; 84550; 85025; 85379; 85610; 85730; 87086; 93005; 96374; 99285-25; A9270-GY; G0378; J3490

== ENCOUNTER 2021-04-17 18:04 | Emergency (ER) | payer BC, OTHER ==
--- NOTE | 2021-04-17 18:16 | EDM.PDOC ---
ED HPI GENERAL MEDICAL PROBLEM - General Chief Complaint: Upper Extremity Injury/Pain Stated Complaint: left elbow injury Time Seen by Provider: 04/17/21 18:10 Source of Information: Reports: Patient History Limitations: Reports: No Limitations - History of Present Illness INITIAL COMMENTS - FREE TEXT/NARRATIVE: Patient works at [employer]. She was pulling on a magnet forcefully with her left arm and had sudden pain in the lateral epicondyle area. NO previous injury. Is rigth handed. No numbness or tingling. nothing struck the arm. Onset: Today Location: Reports: Upper Extremity, Left Improves with: Reports: None Worsens with: Reports: Movement (and flexion of the left wrist) Left Elbow Pain Score (Numeric/FACES): 7 - Related Data Allergies Allergy/AdvReac Type Severity Reaction Status Date / Time No Known Allergies Allergy Verified 04/17/21 18:05 Home Meds: Home Meds Levothyroxine Sodium 88 mcg PO SUTUTHSA@1030 07/13/18 [History] Levothyroxine [Synthroid] 100 mcg MOWEFR@1030 07/13/18 [History] Past Medical History HEENT History: Reports: Cataract, Impaired Vision, Other (See Below) Other HEENT History: Right lower quadrant chronic vision loss beginning in 2013 with negative MRI of the brain as below. Patient does wear glasses. 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 Full term without complications during pregnancies or deliveries Musculoskeletal History: Reports: Osteoarthritis Neurological History: Reports: None Psychiatric History: Reports: None Endocrine/Metabolic History: Reports: Hypothyroidism, Obesity/BMI 30+ Hematologic History: Reports: None Immunologic History: Reports: None Oncologic (Cancer) History: Reports: None Dermatologic History: Reports: None - Infectious Disease History Infectious Disease History: Reports: Chicken Pox - Past Surgical History Head Surgeries/Procedures: Reports: None HEENT Surgical History: Reports: Oral Surgery, Other (See Below) Other HEENT Surgeries/Procedures: [place] teeth extraction 4 at age 19. GI Surgical History: Reports: None Female Surgical History: Reports: Tubal Ligation, Other (See Below) Other Female Surgeries/Procedures: Bilateral tubal ligation in 1996. - Past Imaging History Past Imaging History: Reports: CAT Scan (CT of the abdomen and pelvis on 09/13/16.), Mammogram (Mammogram in 2017.), MRI (MRI of the brain on 11/01/13.) Social & Family History - Family History HEENT: Reports: Retinal Detachment, Other (See Below) Other HEENT Family History: Mother with history of retinal detachment. Cardiac: Reports: None Respiratory: Reports: None GI: Reports: None : Reports: None OBGYN: Reports: None Musculoskeletal: Reports: None Neurological: Reports: None Psychiatric: Reports: None Endocrine/Metabolic: Reports: None Hematologic: Reports: None Immunologic: Reports: None Dermatologic: Reports: None Oncologic: Reports: None - Caffeine Use Caffeine Use: Reports: Tea - Sexual History Sexual History: Reports: Single Partner - Living Situation & Occupation Living situation: Reports: , (3 children from her second which did end in divorce initially with patient subsequently remarrying this individual. Note the patient to divorce her first with one child from that marriage.), with Family () Occupation: Employed ([employer]) Review of Systems - Review of Systems Review Of Systems: Comprehensive ROS is negative, except as noted in HPI. Constitutional: Reports: No Symptoms Eyes: Reports: No Symptoms Ears: Reports: No Symptoms Nose: Reports: No Symptoms Mouth/Throat: Reports: No Symptoms Respiratory: Reports: No Symptoms Cardiovascular: Reports: No Symptoms GI/Abdominal: Reports: No Symptoms Genitourinary: Reports: No Symptoms Musculoskeletal: Reports: Other (left elbow) Neurological: Denies: Numbness, Tingling ED EXAM, GENERAL - Physical Exam Exam: See Below Exam Limited By: No Limitations General Appearance: Alert, WD/WN, No Apparent Distress Eye Exam: Bilateral Eye: Normal Inspection Nose: Normal Inspection Head: Atraumatic Respiratory/Chest: No Respiratory Distress, Normal Breath Sounds Cardiovascular: Regular Rate, Rhythm Extremities: Other (palpation of the left whoulder without deformity at the clavicle. normal shoulder and elbow rom. Slight increase of pain at the lateral epicondyle with pronation. Increased pain with left wrist flexion. sensation intact to the fingers of the left hand) Neurological: Alert, Oriented Course - Vital Signs Last Recorded V/S: Last Vital Signs Temp 36.8 C 04/17/21 18:14 Pulse 66 04/17/21 18:14 Resp 18 04/17/21 18:14 BP 127/75 04/17/21 18:14 Pulse Ox 97 04/17/21 18:14 - Orders/Labs/Meds Orders: Active Orders 24 hr Category Date Time Status Elbow Min 3V Lt [CR] Stat Exams 04/17/21 18:08 Taken - Radiology Interpretation Free Text/Narrative:: no acute seen on x-ray , interpreted by author - Re-Assessments/Exams Free Text/Narrative Re-Assessment/Exam: 04/17/21 18:16 offered pain medication, declines. Advised on RICE, tennis elbow type band available at pharmacy or work. We did not stock this. Will check an x-ray to start the worker's compensation claim. Departure - Departure Time of Disposition: 18:42 Disposition: Home, Self-Care 01 Condition: Good Clinical Impression: Lateral epicondylitis - Discharge Information *PRESCRIPTION DRUG MONITORING PROGRAM REVIEWED*: Not Applicable *COPY OF PRESCRIPTION DRUG MONITORING REPORT IN PATIENT EDITH: Not Applicable Instructions: RICE Therapy for Routine Care of Injuries, [id number], Tennis Elbow, [id number], Tennis Elbow Rehab-SportsMed Forms: ED Department Discharge Additional Instructions: Use ice, motrin or aleve for the pain. Limit use of the left arm/wrist for the next several days. If not improved next week see PCP. purchase and wear a tennis elbow brace and wear around the forearm about 1 inch from the elbow joint to take the pressure off the tendon at the elbow Sepsis Event Note (ED) - Focused Exam Vital Signs: Vital Signs Temp Pulse Resp BP Pulse Ox 04/17/21 18:14 36.8 C 66 18 127/75 97 - My Orders Last 24 Hours: My Active Orders 04/17/21 18:08 Elbow Min 3V Lt [CR] Stat - Assessment/Plan Last 24 Hours: My Active Orders 04/17/21 18:08 Elbow Min 3V Lt [CR] Stat
== END 2021-04-17 19:10 | disposition home or self-care (01) ==
LOC: LL.ED 18:04
DX: M77.12 Lateral epicondylitis, left elbow (principal); E03.9 Hypothyroidism, unspecified; E66.9 Obesity, unspecified; Z68.30 Body mass index [BMI] 30.0-30.9, adult; Z79.899 Other long term (current) drug therapy; X50.0XXA Overexertion from strenuous movement or load, initial encounter; Y99.0 Civilian activity done for income or pay
CPT/HCPCS: 73080-LT; 99283; 99283-25